=== PATIENT | female | born 1990 | race Caucasian/White ===

== ENCOUNTER 2023-06-23 17:44 | Emergency (ER) | payer OTHER ==
[~2023-06-23] VITALS: Ht 157.5 cm; Wt 67.1 kg
[2023-06-23 18:25] VITALS: BP 133/75; PULSE 89; RESP 20; TEMP 98.6; O2SAT 99
[2023-06-23 19:30] VITALS: TEMP 98.6
[2023-06-23] MEDS ORDERED: KETOROLAC 60 MG/2 ML VIAL IM ONE (20:15)
[2023-06-23] MEDS ORDERED: IBUP-2213 PO (20:25)
[2023-06-23] MEDS ORDERED: PRED20TA5 PO (20:25)
[2023-06-23 21:05] VITALS: BP 101/61; PULSE 90; RESP 20; O2SAT 96
== END 2023-06-23 21:05 | disposition home or self-care (01) ==
LOC: MED 17:44
DX: R07.89 Other chest pain (principal); Z79.899 Other long term (current) drug therapy
CPT/HCPCS: 81002; 81025; 96372; 99283; J1885